=== PATIENT | female | born 1975 | race Caucasian/White ===

== ENCOUNTER → 2019-07-12 | Outpatient (CLI) | payer OTHER ==
[~2019-07-12] MED LIST: ELET40TA PO; GALC100S SQ; LISI10TA2 PO; TOPI100T42 PO
[2019-07-12 15:20] LABS: BILIRUBIN,URINE NEGATIVE (NEG); CLARITY,URINE CLEAR; COLOR,URINE YELLOW; NITRITE,URINE NEGATIVE (NEG); PH,URINE 7.5; PROTEIN,URINE NEGATIVE (NEG-TRACE); UROBILINOGEN,URINE 0.2 mg/dL (0.2 mg/dL)
[2019-07-12 15:25] LABS: BASO # 0.1 x10^3/uL (0.0-0.2); BASO % 1 % (0-3); EOS # 0.2 x10^3/uL (0.0-0.7); EOS % 3 % (0-3); HEMATOCRIT 41.2 % (36.0-47.0); HEMOGLOBIN 13.7 g/dL (12.0-15.5); LYMPH # 1.6 x10^3/uL (1.0-4.8); LYMPH % 27 % (24-48); MEAN CORPUSCULAR HEMOGLOBIN 29 pg (25-35); MEAN CORPUSCULAR HGB CONC 33 g/dL (31-37); MEAN CORPUSCULAR VOLUME 87 fL (79-100); MONO # 0.5 x10^3/uL (0.0-1.1); MONO % 8 % (0-9); NEUT # 3.7 x10^3/uL (1.8-7.7); NEUT % 61 % (31-73); PLATELET COUNT 197 x10^3/uL (140-400); RED BLOOD COUNT 4.72 x10^6/uL (3.50-5.40); RED CELL DISTRIBUTION WIDTH 14.7 % (11.5-14.5)
--- NOTE | 2019-07-12 15:26 | EKG ---
[facility] [address] [place] [address] Test Date: 2019-07-12 Test Time: 15:31:58 Pat Name: SOCORRO ALLEN Department: Room: Gender: F Commercial Sales Specialist: : 1975 Requested By: SAVANNA BOOGIE Order Number: [id number] Reading MD: Zoran Brothers Measurements Intervals [place] Rate: 59 P: 47 MI: 162 QRS: 43 QRSD: 88 T: 49 QT: 390 QTc: 390 Interpretive Statements SINUS RHYTHM Electronically Signed On 07-13-2019 16:12:54 CDT by Zoran Brothers
[2019-07-12 15:29] LABS: AMORPHOUS SEDIMENT,UR PRESENT /HPF; BACTERIA,URINE 0 /HPF (0-FEW); RBC,URINE 0 /HPF (0-2); WBC,URINE 0 /HPF (0-4)
[2019-07-12 15:43] LABS: ALBUMIN 3.9 g/dL (3.4-5.0); ALBUMIN/GLOBULIN RATIO 1.1 (1.0-1.7); CALCIUM 8.8 mg/dL (8.5-10.1); GFR 59.7; POTASSIUM 3.7 mmol/L (3.5-5.1); TOTAL BILIRUBIN 0.2 mg/dL (0.2-1.0); TOTAL PROTEIN 7.5 g/dL (6.4-8.2)
--- NOTE | 2019-07-12 17:17 | RAD ---
INDICATION: Preoperative evaluation for hysterectomy COMPARISON: None. FINDINGS: 2 view of chest obtained. Degenerative changes the spine with osteophyte formation. No definite focal airspace consolidation or pulmonary edema. Cardiac silhouette unremarkable. IMPRESSION: * No focal airspace consolidation or edema. Electronically signed by: Avinash Camilo MD (07/12/2019 5:14 PM) [facility]
--- NOTE | 2019-07-14 10:40 | NUR ---
FAXED PRE - OP TEST REPORTS TO 'S OFFICE FOR REVIEW AT 6148 07/14/19 AND RECEIVED TRANSMITTAL CONFIRMATION.
--- NOTE | 2019-07-17 15:56 | NUR ---
FRANNYG'S FINAL REPORT REVIEWED BY , ANESTHESIOLOGIST 07/17/2019 AT 1315 AND WAS OK.
== END | disposition home or self-care (01) ==
LOC: SURGPAT 14:22
PROVIDERS: ATTEND Obstetrics & Gynecology
DX: Z01.818 Encounter for other preprocedural examination (principal); I10 Essential (primary) hypertension; E03.9 Hypothyroidism, unspecified; M25.78 Osteophyte, vertebrae; M47.814 Spondylosis without myelopathy or radiculopathy, thoracic region
CPT/HCPCS: 36415; 71046; 80053; 81001; 85025; 93005

== ENCOUNTER 2019-07-19 06:00 | Observation (INO) | payer OTHER ==
[2019-07-19] VITALS (10 sets, daily range): BP systolic 109–127; BP diastolic 63–75
[~2019-07-19] VITALS: Ht 165.1 cm; Wt 62.0 kg
[~2019-07-19 06:00] MED LIST changes: +BUPIVACAINE-EPI 0.25%-1:200000 MPF 30 ML VIAL. INJ ONE
[2019-07-19] MEDS ORDERED: LEVO88TA4 PO (06:41)
[2019-07-19] MEDS ORDERED: SCOPOLAMINE 1.5MG PATCH. TD ONE (06:45)
[2019-07-19] MEDS ORDERED: HYDROmorphone 2 MG/ML VIAL IV PRN (07:00)
[2019-07-19] MEDS ORDERED: IV RINGERS,LACTATED 1000ML 1,000 ML IV SCH (07:00)
[2019-07-19] MEDS ORDERED: MORPHINE SULFATE 2 MG/ML VIAL. IV PRN ×2 (07:00→10:45)
[2019-07-19] MEDS ORDERED: fentaNYL PF VIAL 100 MCG/2 ML VIAL IV PRN ×2 (07:00)
[2019-07-19] MEDS ORDERED: ONDANSETRON PF 4 MG/2 ML VIAL. IV PRN ×2 (07:00→10:45)
[2019-07-19] MEDS ORDERED: ceFAZolin 2GM PREMIX 2 GM/50 ML BAG IV ONE (07:00)
[2019-07-19] MEDS ORDERED: PROCHLORPERAZINE 10 MG/2 ML VIAL. IV PRN (07:00)
[2019-07-19] MEDS ORDERED: ESTROGENS, CONJ VAGINAL CREAM 30GM TUBE. ONE (07:07)
[2019-07-19] MEDS ORDERED: INDIGOTINDISULFONATE SODIUM 40 MG/5 ML AMPUL. ONE (07:07)
[2019-07-19] MEDS ORDERED: FAMOTIDINE 20 MG/2 ML VIAL ONE (07:12)
[2019-07-19] MEDS ORDERED: LIDOCAINE 2% PF 5 ML VIAL. ONE (07:12)
[2019-07-19] MEDS ORDERED: ONDANSETRON PF 4 MG/2 ML VIAL. ONE (07:12)
[2019-07-19] MEDS ORDERED: fentaNYL PF VIAL 100 MCG/2 ML VIAL ONE ×2 (07:12→10:16)
[2019-07-19] MEDS ORDERED: PROPOFOL 20 ML IV ONE (07:12)
[2019-07-19] MEDS ORDERED: ROCURONIUM 50 MG/5 ML VIAL. ONE (07:12)
[2019-07-19] MEDS ORDERED: MIDAZOLAM HCL/PF 2 MG/2 ML VIAL. ONE (07:12)
[2019-07-19] MEDS ORDERED: DEXAMETHASONE SOD PHOS 4 MG/ML VIAL ONE (07:12)
[2019-07-19] MEDS ORDERED: BUPIVACAINE-EPI 0.25%-1:200000 MPF 30 ML VIAL. INJ ONE ×2 (08:00)
[2019-07-19] MEDS ORDERED: GLYCOPYRROLATE 1 MG/5 ML VIAL. ONE (08:35)
[2019-07-19] MEDS ORDERED: NEOSTIGMINE METHYLSULFATE 5 MG/5 ML SYRINGE. ONE (08:38)
[2019-07-19] MEDS ORDERED: KETOROLAC 30 MG/ML VIAL. ONE (08:38)
[2019-07-19] MEDS: LEVOTHYROXINE 88 MCG TABLET PO SCH (09:00)
[2019-07-19] MEDS ORDERED: SEVOFLURANE > 120 MINUTES. IH ONE (09:50)
--- NOTE | 2019-07-19 10:39 | PDOC ---
BRIEF OPERATIVE NOTE Date: Jul 19, 2019 Pre-Op Diagnosis uterine fibroids, right ovarian cyst, GSUI Post-Op Diagnosis same Procedure Performed LAVH/RSO/left salpingectomy/TVT abbrevo with cystoscopy Surgeon Dr. Rosalinda Bee Front Desk Agent GLORIA Lange Anesthesiologist Dr. Gregory Anesthesia Type: General Blood Loss 20cc IV Fluid 1200cc crystalloid Urine Output 700cc clear via colon Specimens Obtained cervix, uterus, bilateral tubes and right ovary Findings mildly enlarged RV uterus, cysts on right ovary, normal left tube and ovary, mild adhesions on right side near appendix (above where I was operating on so left alone) Complications none Operative Note [id number] ROSALINDA BEE MD Jul 19, 2019 10:39
[2019-07-19] MEDS ORDERED: diphenhydrAMINE 50 MG/ML VIAL IV PRN (10:45)
[2019-07-19] MEDS ORDERED: 0.9 % SODIUM CHLORIDE 10 ML DISP.SYRIN. IV PRN (10:45)
[2019-07-19] MEDS ORDERED: diphenhydrAMINE HCL 25 MG CAPSULE PO PRN (10:45)
[2019-07-19] MEDS ORDERED: NALOXONE 0.4 MG/ML VIAL. IV PRN (10:45)
[2019-07-19] MEDS ORDERED: SIMETHICONE 80 MG TAB.CHEW PO PRN (10:45)
[2019-07-19] MEDS ORDERED: LACTULOSE 20 GM/30 ML SOLUTION. PO PRN (10:45)
[2019-07-19] MEDS ORDERED: HYDROcodone/APAP 5/325MG 1 TAB TABLET PO PRN (10:45)
[2019-07-19] MEDS ORDERED: CALCIUM CARBONATE 500 MG TAB.CHEW PO PRN (10:45)
[2019-07-19] MEDS ORDERED: MAG HYDROX/ALUMINUM HYD/SIMETH 30 ML ORAL.SUSP PO PRN (10:45)
[2019-07-19] MEDS ORDERED: ZOLPIDEM 5 MG TABLET. PO PRN (10:45)
[2019-07-19] MEDS ORDERED: MAGNESIUM HYDROXIDE 2,400 MG/30 ML ORAL.SUSP. PO PRN (10:45)
[2019-07-19] MEDS ORDERED: LISINOPRIL 10 MG TABLET PO SCH (12:00)
--- NOTE | 2019-07-19 13:57 | OP ---
DATE OF SURGERY: 07/19/2019 PREOPERATIVE DIAGNOSES: Uterine fibroids, right ovarian cyst and genuine stress urinary incontinence. POSTOPERATIVE DIAGNOSES: Uterine fibroids, right ovarian cyst and genuine stress urinary incontinence. PROCEDURE: Laparoscopic-assisted vaginal hysterectomy, right salpingo-oophorectomy, left salpingectomy, a TVT-Abbrevo with cystoscopy. SURGEON: Savanna Bee M.D. ACCOUNT CLERK: GLORIA Garcia. ANESTHESIOLOGIST: Dr. Gregory. ANESTHESIA: General. URINE OUTPUT: 700 mL clear via Dalton catheter. IV FLUIDS: 1200 mL of crystalloid. BLOOD LOSS: 20 mL. SPECIMENS: Cervix, uterus, bilateral tubes, and right ovary. FINDINGS: A mildly enlarged retroverted uterus, cysts on the right ovary, normal left tube and ovary, mild adhesions, but not in the pelvic area, up higher on the right side near the appendix, which was above where I was operating. So, these were left alone. COMPLICATIONS: None. DESCRIPTION OF PROCEDURE: This patient was taken to the operating room where general anesthesia was placed. The patient was placed in a dorsal lithotomy position in [facility]. The patient's abdomen and vagina were both prepped and draped in the normal sterile fashion and a Dalton catheter had been inserted prior to my arrival. Upon my arrival, a timeout was performed. Once everyone agreed on the patient, procedure, and she had received her preoperative antibiotics, a bivalve speculum was placed in the patient's vagina. A single-tooth tenaculum was used to grasp the anterior lip of the cervix. A 10 mL of 0.25% Marcaine with epinephrine was used to circumferentially inject around the cervix for both hemodissection and hemostatic purposes later. The Valtchev uterine manipulator was placed through the endocervical os, locked on the single tooth tenaculum and the bivalve speculum was then removed. Top gloves were discarded and changed. Attention was then turned to the abdomen where a small supraumbilical skin incision was made with the scalpel as she did have a mildly enlarged uterus. Curved Gabriela was used to dissect through the subcuticular layer to the fascia. The 5 mm Visiport was used to directly enter the abdominal cavity. Opening patient pressure was 2-3 mmHg. Carbon dioxide gas was used to then appropriately insufflate the abdominal cavity to maintain a pressure of 15 mmHg. The patient was placed in Trendelenburg position. Prior to placing that, I did put 2-3 mL of 0.25% Marcaine with epinephrine of local in there. Then, we transilluminated the left side, found out where we were going to go, placed another 3-4 mL there, made a small incision and placed the trocar under direct visualization without difficulty. A 4-5 mL of air was placed in this trocar cuff balloon. The camera was then moved to look at the umbilical port. It was clear, so 4-5 mL of air was placed in this as well to ensure it would not come out. The camera was moved back to the midline, transilluminating the right side, finding an area clear on the inside. Again, using the remainder of the 10 mL, another 3-4 mL of 0.25% Marcaine with epinephrine, the local solution to inject, then make the small incision and placed the trocar under direct visualization atraumatically. A 4-5 mL of air was placed in this trocar balloon on the cuff as well. Once this was done, the patient was placed in Trendelenburg position, and the left tube and ovary were examined and found to be normal. This is the one patient wished to keep. So, we found the ureter coursing low, but I stayed above the ovary below the tube and did a salpingectomy with the LigaSure. Then, I crossed the left uterine ovarian pedicle and the left round ligament. Then, with the cervix pushed up to the cephalad to the head of the bed and pushing the uterus up with the vaginal manipulator. The bladder flap was grasped with the [place] and the monopolar hook was used to go across it and create the bladder flap sharply and pulling it down the bladder came down very nicely. At this point, the right tube and ovary were identified and elevated. There were cysts on the right ovary as indicated per the sonogram preoperatively. This is the side the patient wanted out. So, the right tube and ovary were elevated, finding the ureter coursing low in the pelvis following it down, watching it peristalse, staying high on the ovary well above the level of the ureter, again crossing the infundibulopelvic ligament right under the ovary, cauterizing and cutting with the LigaSure, removing the right tube and ovary per patient request and going over and then getting the right round ligament as well. Once this was done, we went down and further met that bladder flap anteriorly. Once it was down, I got the uterine vessels on the right side, cauterizing and cutting and then staying inside this pedicle, working my way down through the cardinal and broad ligaments to the level of the uterosacral. Then, I went back over to the patient's left side and got the uterine vessels as well and then staying inside this pedicle, going down through the cardinal and broad ligament, staying vertical on the cervix, hugging the cervix, going down to the level of the uterosacral as well. The uterus was completely free, completely blanched of all blood supply, all instruments were removed. There was no active bleeding at this point at all and attention was turned vaginally. The single tooth and Valtchev were removed. A weighted speculum was placed in the patient's vagina. Thyroid Nayla clamps were placed on the anterior and posterior lips of the cervix respectively. A scalpel was used to make a circumferential incision in the cervix. The cervix was elevated. The posterior cul-de-sac was sharply entered with curved Hoffmann scissors and a #0 Vicryl stitch was used to secure the posterior peritoneum to the vaginal cuff, tagging it with a curved Gabriela clamp, cutting and passing the needle off, removing the short weighted vaginal speculum and replacing it with the long weighted Elana speculum in the posterior cul-de-sac. At this point, the blunt end of the suction tip was used to gently push up the anterior bladder peritoneum, so I could create the bladder flap sharply. Upon pushing it up, I found a metal 90-degree hook that looked initially like a staple that was removed. Upon removing the Thyroid Nayla clamp, there was found to be missing one of its teeth and it fitted exactly, so it was removed entirely and passed off and put together and taken off the field and a new Thyroid Nayla clamp was obtained. So, this was gently pushed up, and with the bladder flap was created sharply and then bluntly pushed up with an open Ray-Hailey 4 x 4 and the anterior cul-de-sac was digitally and bluntly entered. The Ray-Hailey was removed and the curved Daryn was placed in the anterior cul-de-sac. At this point, curved Eric clamps x 2 were placed on the patient's left uterosacral ligament where they were doubly clamped with curved Heaneys, cut with Hoffmann scissors and suture ligated x 2 with 0 Vicryl. The second one was taken through the vaginal cuff, securing uterosacral ligament to the vaginal cuff, tagged with a straight Gabriela clamp and the needle was cut and passed off. This was done exactly the same on the patient's right side, double clamping the uterosacrals with curved Eric's, cutting with Hoffmann scissors, suture ligating x 2 with 0 Vicryl, taking the second one through the vaginal cuff, securing uterosacral ligament to vaginal cuff, tagging it with a straight Gabriela clamp and cutting and passing the needle off. Once this was done, the right angle clamp was used to delineate the remaining pedicle on the left side, the vaginal LigaSure was used to cauterize and cut the remaining pedicle freeing up the entire left side. This was done exactly the same on the right. Once using the right angle clamp to delineate the remaining pedicle and the vaginal LigaSure max to cauterize and cut it. Once this was done, the cervix, uterus, right tube and ovary and left tube were delivered in total and passed off for permanent pathology. The long Allis was used to grasp the anterior bladder peritoneum. A sponge stick was used to examine the pedicles. There was some slight bleeding from the patient's right side that was easily grasped and cauterized with the vaginal LigaSure. Once this was done, the pedicles were dry and reexamined. The long weighted Elana speculum was removed and replaced with the short weighted vaginal speculum again. All the pedicles were examined again. Once they were assured to be hemostatic, 2-0 Vicryl was taken through the anterior bladder peritoneum, left uterosacral ligament, posterior peritoneum and right uterosacral ligament, thus closing the peritoneum in a pursestring like fashion. So, once this was done, the right and left uterosacral tags were clipped. A full length 2-0 Vicryl was used to close the cuff in an anterior to posterior running locked fashion and tied to that posterior cuff tag. At this point, the vaginal cuff was closed and all sponge, lap and needle counts were correct x 2 by OR personnel. At this point, the Dalton bulb was deflated on the catheter and going approximately 1 cm below the urethra. An Allis clamp was placed here 35 mL of a dilute solution of 25 parts local to 100 mL of injectable saline, so a 1 part local to 4 parts injectable saline. Dilute solution was used, 35 mL was injected centrally and out laterally towards the obturator with injecting withdrawing making sure we were not in any vascular space and doing this. A small 1 cm vertical incision was made below this, opening up the suburethral area and once this was done, Allis clamps were placed on either side of that opening. Metzenbaum scissors were used to dissect out laterally staying superficial right under the vaginal mucosa out to the obturator foramen on both sides. Once this was done, the sling had been opened. The wing guide applicator was placed on the patient's right side. The sling was making sure it was all straight. It was placed inside that. Prior to doing this, I did use a marking pen to pravin 2 cm up from the urethral opening. I made a line and then 2 cm out on the lateral groin fold out from there as well for the expected sling location on both sides. So, once this was done, the wing guide applicator was placed on the patient's right side. The sling was placed in here and came out a fraction of pravin away from this on the right side. A small aniket was made overlying skin over the white sheath over the sling handheld starting gate driver and it popped right through. A curved Gabriela was placed on this and it was removed from the handheld device below, pulling it through, making sure it was straight. There was absolutely no buttonholing on the right side. Then, on the left side, the wing guide applicator was placed in, it was placed through. Initially I did notice an immediate buttonhole just a small one, so it was pulled back out and placed back in with no buttonhole. Came out right at the expected opening again, making a small aniket in the superficial skin, popping it through, putting a Gabriela on it to remove it from the handheld starting gate driver of the sling, pulling it through, making sure the sling was straight. I did not pull it taut at this point, it was just through. Again, I checked vaginally, no buttonholing on either side. At this point, the catheter was removed because again the Dalton bulb had been deflated and at this point, the cystoscopy was performed. A 400-500 mL of fluid was placed in with the bladder bubble being seen. Both urethral openings were seen at the trigone and there was no blood, no trauma, no tape in the bladder. So, at this point, some of the fluid was drained, but the catheter was left out and a 2-layer closure with 4-0 Monocryl was used in a SubQ and then 2-0 Vicryl was placed over this for this 2-layer. The 2-0 Vicryl little piece of the stitch was placed over that buttonholing on the left side as well with excellent results. Once they were through, I did the cystoscopy, made sure it was in place. The plastic sheaths were removed. The Prolene was used to center it over the 6 mm dilator, these were pulled taut and through, the center Prolene was clipped. FloSeal was placed over the sling itself on both sides and then the 2-layer closure with the Monocryl and Vicryl were done in the midline. A small Vicryl on the lateral left side where the buttonhole was and then glue was used over the groin sides. This part completed the vaginal part and the sling and the cystoscopy. So, all gloves were discarded and changed. A second look from above revealed complete hemostasis. Tisseel was placed over the cuff in the remaining pedicle. The left ovary did remain per patient's request. It was all dry. The pericolic gutters were clear. The gas was taken out from the trocar sites on the right and left lower quadrants in the center one as well. The right and left lower quadrant ports were removed under direct visualization. These were hemostatic. The cuff still remained dry, so the gas was released from the supraumbilical port. Once it was out, it was removed, all three port sites were closed with 4-0 nylon at the skin. The patient was awakened from anesthesia and brought to recovery room in stable condition. SAVANNA BEE MD DR: MALACHI/nabor JOB#: [id number] / [id number]
[2019-07-19] MEDS: oxyCODONE/APAP 5/325 1 TAB TABLET PO PRN ×3 (14:10→23:47)
[2019-07-19] MEDS: TOPIRAMATE 100 MG TABLET. PO SCH ×2 (17:57→21:00)
[2019-07-20 05:12] VITALS: BP 123/71
[2019-07-20] MEDS: LEVOTHYROXINE 88 MCG TABLET PO SCH (05:13)
[2019-07-20 05:50] LABS: CALCIUM 8.1 mg/dL (8.5-10.1); GFR 59.7; POTASSIUM 3.7 mmol/L (3.5-5.1)
[2019-07-20] MEDS: oxyCODONE/APAP 5/325 1 TAB TABLET PO PRN (08:00)
[2019-07-20] MEDS: TOPIRAMATE 100 MG TABLET. PO SCH (08:01)
--- NOTE | 2019-07-20 08:28 | PDOC ---
SURGICAL PROGRESS NOTE Subjective Doing well without complaints. Tolerating regular diet, ambulating well, voiding without catheter. wants to go home today. Scant VB when wiping only Vital Signs Vital Signs Date Time Temp Pulse Resp B/P (MAP) Pulse Ox O2 Delivery O2 Flow Rate FiO2 07/20/19 05:12 98.4 70 20 123/71 (88) 100 Room Air 98.4 07/19/19 10:45 8 I&O Intake and Output 07/20/19 07:00 Intake Total 2470 ml Output Total 1520 ml Balance 950 ml Intake Oral 1220 ml IV Total 1250 ml Output Urine Total 1500 ml Estimated Blood Loss 20 ml # Voids 5 PATIENT HAS A YING: No General: Alert, Oriented X3, Cooperative, No acute distress HEENT: Atraumatic Heart: Regular rate Abdomen: Soft, No tenderness (port sites c/d/i), Other Extremities: No clubbing, No cyanosis, No edema Skin: No rashes, No breakdown Neuro: Normal speech Psych/Mental Status: Mental status NL, Mood NL Labs Laboratory Tests Test 07/19/19 06:03 07/20/19 05:00 07/20/19 05:15 Bedside Urine HCG, Qualitative Hcg negative (Negative) Hematocrit 36.2 % (36.0-47.0) Sodium Level 144 mmol/L (136-145) Potassium Level 3.7 mmol/L (3.5-5.1) Chloride Level 110 mmol/L (98-107) Carbon Dioxide Level 23 mmol/L (21-32) Anion Gap 11 (6-14) Blood Urea Nitrogen 7 mg/dL (7-20) Creatinine 1.0 mg/dL (0.6-1.0) Estimated GFR (Cockcroft-Gault) 59.7 Glucose Level 98 mg/dL (70-99) Calcium Level 8.1 mg/dL (8.5-10.1) Laboratory Tests Test 07/20/19 05:00 07/20/19 05:15 Hematocrit 36.2 % (36.0-47.0) Sodium Level 144 mmol/L (136-145) Potassium Level 3.7 mmol/L (3.5-5.1) Chloride Level 110 mmol/L (98-107) Carbon Dioxide Level 23 mmol/L (21-32) Anion Gap 11 (6-14) Blood Urea Nitrogen 7 mg/dL (7-20) Creatinine 1.0 mg/dL (0.6-1.0) Estimated GFR (Cockcroft-Gault) 59.7 Glucose Level 98 mg/dL (70-99) Calcium Level 8.1 mg/dL (8.5-10.1) I have reviewed the following labs, vitals, nursing Cardiovascular: No pertinent hx Pulmonary: No pertinent hx GI: No pertinent hx Heme/Onc: No pertinent hx Psych: No pertinent hx Assessment/Plan POD#1 s/p LAVH/RSO/left salpingectomy/TVT abbrevo with cystoscopy d/c to home later today NPV x 6 weeks light/limited activity x 2 weeks (exlained to pt) keep scheduled follow up with me in 1 week already has narcotic pain meds filled at home OK for OTC ibuprofen as needed call or return sooner for any other questions or concerns not limited to but including pain unrelieved with pain meds, increased or unexplained vaginal bleeding or T>100.4 SAVANNA BOOGIE MD Jul 20, 2019 08:28
--- NOTE | 2019-07-20 08:30 | PDOC3 ---
Discharge Summary Visit Information Date of Admission: Jul 19, 2019 Date of Discharge: Jul 20, 2019 Final Diagnosis enlarged fibroid uterus, menorrhagia, GSUI Brief Hospital Course Allergies Allergies Coded Allergies Type Severity Reaction Last Updated Verified naproxen Allergy Intermediate Hives 07/19/19 Yes adhesive tape Allergy Mild Rash 07/19/19 Yes Vital Signs Vital Signs Date Time Temp Pulse Resp B/P (MAP) Pulse Ox O2 Delivery O2 Flow Rate FiO2 07/20/19 05:12 98.4 70 20 123/71 (88) 100 Room Air 98.4 07/19/19 10:45 8 Lab Results Laboratory Tests Test 07/19/19 06:03 07/20/19 05:00 07/20/19 05:15 Bedside Urine HCG, Qualitative Hcg negative (Negative) Hematocrit 36.2 % (36.0-47.0) Sodium Level 144 mmol/L (136-145) Potassium Level 3.7 mmol/L (3.5-5.1) Chloride Level 110 mmol/L (98-107) Carbon Dioxide Level 23 mmol/L (21-32) Anion Gap 11 (6-14) Blood Urea Nitrogen 7 mg/dL (7-20) Creatinine 1.0 mg/dL (0.6-1.0) Estimated GFR (Cockcroft-Gault) 59.7 Glucose Level 98 mg/dL (70-99) Calcium Level 8.1 mg/dL (8.5-10.1) Laboratory Tests Test 07/20/19 05:00 07/20/19 05:15 Hematocrit 36.2 % (36.0-47.0) Sodium Level 144 mmol/L (136-145) Potassium Level 3.7 mmol/L (3.5-5.1) Chloride Level 110 mmol/L (98-107) Carbon Dioxide Level 23 mmol/L (21-32) Anion Gap 11 (6-14) Blood Urea Nitrogen 7 mg/dL (7-20) Creatinine 1.0 mg/dL (0.6-1.0) Estimated GFR (Cockcroft-Gault) 59.7 Glucose Level 98 mg/dL (70-99) Calcium Level 8.1 mg/dL (8.5-10.1) Brief Hospital Course Ms. Barragan is a 44 old female who presented with enlarged fibroid uterus and urinary incontinence. She underwent and LAVH/RSO/left salpingecotmy, TVT abbrevo and cysto yesterday without complications. She has had an unremarkable postoperative course and will go home today. AFVSS, voiding without catheter, tolerating regular diet Assessment Assessment POD#1 s/p LAVH/RSO/left salpingectomy/TVT abbrevo with cystoscopy d/c to home later today NPV x 6 weeks light/limited activity x 2 weeks (exlained to pt) keep scheduled follow up with me in 1 week already has narcotic pain meds filled at home OK for OTC ibuprofen as needed call or return sooner for any other questions or concerns not limited to but including pain unrelieved with pain meds, increased or unexplained vaginal blee ding or T>100.4 Discharge Information Condition at Discharge: Improved Follow Up: Weeks Disposition/Orders: D/C to Home Scheduled Eletriptan Hbr (Relpax) 40 Mg Tablet, 40 MG PO BID for MIGRAINE, (Reported) Entered as Reported by: ALICIA GOMEZ on 07/12/19 144 Last Taken: Unknown Dose on 08/18/18 Last Action: HELD on 07/19/19737 by SAVANNA BOOGIE Galcanezumab-Gnlm (Emgality Syringe) 300 Mg/3 Ml Syringe, 300 MG SQ QMONTH for MIGRAINE, (Reported) Entered as Reported by: ALICIA GOMEZ on 07/12/19 144 Last Taken: Unknown Dose on 06/29/19 Last Action: HELD on 07/19/19737 by SAVANNA BOOGIE Levothyroxine Sodium (Levothyroxine Sodium) 88 Mcg Tablet, 1 TAB PO DAILY for THYROID, #30 Ref 5 (Reported) Entered as Reported by: RENARD BCAH on 07/19/19 0641 Last Taken: Unknown Dose on 07/19/19 0530 Last Action: Continued on 07/19/19737 by SAVANNA BOOGIE Lisinopril (Lisinopril) 10 Mg Tablet, 1 TAB PO DAILY for HTN, #30 Ref 5 (Reported) Entered as Reported by: ALICIA GOMEZ on 07/12/19 1443 Last Taken: Unknown Dose on 07/17/19 Last Action: Continued on 07/19/19737 by SAVANNA BOOGIE Topiramate (Topamax) 100 Mg Tablet, 1 TAB PO BID for MIGRAINES for 30 Days, #60 Ref 0 (Reported) Entered as Reported by: ALICIA BEAUCary on 07/12/19 1442 Last Taken: Unknown Dose on 07/18/19 Last Action: Continued on 07/19/19 0738 by SAVANNA BOOGIE Patient Instructions Patient Instructions POD#1 s/p LAVH/RSO/left salpingectomy/TVT abbrevo with cystoscopy d/c to home later today NPV x 6 weeks light/limited activity x 2 weeks (exlained to pt) keep scheduled follow up with me in 1 week already has narcotic pain meds filled at home OK for OTC ibuprofen as needed call or return sooner for any other questions or concerns not limited to but including pain unrelieved with pain meds, increased or unexplained vaginal bleeding or T>100.4 SAVANNA BOOGIE MD Jul 20, 2019 08:30
[2019-07-20 08:50] VITALS: BP 118/72
--- NOTE | 2019-07-21 00:06 | PATHOLOGY ---
[facility] Accession Number: [id number] . 01 Material submitted: . uterus - CERVIX, UTERUS, RIGHT FALLOPIAN TUBE AND OVARY, LEFT FALLOPIAN TUBE. Modifiers: bilateral, right . 01 Clinical history: . Uterus fibroid . 02 Diagnosis: "Cervix, uterus, right fallopian tube and ovary, left fallopian tube", hysterectomy, bilateral salpingectomy and right oophorectomy: - Cervix with mild chronic cervicitis. - Endometrium with proliferative pattern. - Myometrium with superficial adenomyosis and adenomyoma. - Fallopian tubes, bilateral, with focal paratubal cysts. - Ovary, right, with follicular cysts, resolving hemorrhagic corpus luteum and corpora albicantia. . (CLW:mm; 07/20/2019) [facility] 07/20/2019 1232 Local . 02 Electronically signed: . Kathy Jacob MD, Pathologist NPI- [id number] . 01 Gross description: . The specimen is received in formalin labeled "Darby Mower, cervix, uterus, right fallopian tube and ovary, left fallopian tube". Received is a 154 g, 9.6 x 6.9 x 4.8 cm uterus with attached cervix attached left fallopian tube weighing 3 g, and attached right adnexa weighing 15 g. The uterine serosa is pink-donohue and smooth in appearance. The 1.5 cm cervical os is surrounded by pink-donohue, smooth to disrupted ectocervical mucosa. The uterus is oriented using the peritoneal reflection and the anterior paracervical margin is inked black. The uterus is opened laterally to reveal a pale donohue, slightly corrugated endocervical canal measuring 2.8 cm in length. The endometrial cavity is triangular measuring 4.8 cm in length by 3.7 cm in width. The endometrium is pale donohue, glistening appearance and measures 0.1 cm in thickness. Serial sectioning reveals a donohue-pink, trabeculated myometrium measuring up to 2.8 cm in thickness displaying a single possible cystic structure filled with blood-tinged fluid measuring 0.5 cm. Extensive sectioning reveals no grossly distinct fibroids. . The left fimbriated fallopian tube measures 4.8 cm in length by up to 0.6 cm in diameter. Sectioning reveals a patent lumen, and the fallopian tube appears grossly unremarkable. . The right adnexa consists of a fimbriated fallopian tube measuring 4.5 cm in length by up to 0.7 cm in diameter attached to a 2.5 x 2.5 x 1.8 cm ovary. Sectioning through the fallopian tube reveals a patent lumen and the fallopian tube appears grossly unremarkable. Sectioning through the ovary reveals a unilocular cystic structure measuring 1.7 cm filled with blood-tinged fluid. The remaining cut surfaces display pale donohue, normal ovarian stroma. The specimen is submitted representatively as follows: . A1 12:00 cervix A2 6:00 cervix A3 anterior endomyometrium A4 posterior endomyometrium A5 possible cystic structure A6 left fallopian tube A7-A8 right adnexa. (CAA; 07/19/2019) QA/[facility] 07/19/2019 1614 Local . 02 Pathologist provided ICD-10: N72, N80.0, N83.8, N83.01 . 02 CPT . 610838 Specimen Comment: A courtesy copy of this report has been sent to [phone], [phone] Specimen Comment: [id number] Specimen Comment: Report sent to / DR FLORIAN Performed at: 01 [facility] [address], [place] [id number] MD Victor Manuel Godinez MD Phone: [phone] Performed at: 02 [facility] [address] [place], [place] [id number] MD Kishore Vogt MD Phone: [phone]
== END 2019-07-20 09:20 | disposition home or self-care (01) ==
LOC: SURG 06:00 → EDUNIT# 07:30 → 3 NORTH 10:45
PROVIDERS: ADMIT Obstetrics & Gynecology; ATTEND Obstetrics & Gynecology
DX: D25.9 Leiomyoma of uterus, unspecified (principal); N39.3 Stress incontinence (female) (male); N83.201 Unspecified ovarian cyst, right side; I10 Essential (primary) hypertension; N94.10 Unspecified dyspareunia; N92.0 Excessive and frequent menstruation with regular cycle
CPT/HCPCS: 36415; 57288; 58552; 80048; 81025; 85014; 86850; 86900; 86901; A7015; C1760; G0378; G0379; J0696; J1100; J1885; J2001; J2250; J2405; J2704; J2710; J3010; J3490; J7030; J7120; 88307; C1771